=== PATIENT | male | born 1955 | race Caucasian/White ===

== ENCOUNTER 2017-10-18 10:52 | Day surgery (SDC) | payer OTHER ==
[2017-10-18] MEDS ORDERED: DIPHENHYDRAMINE 50 MG CAP PO (11:30)
[2017-10-18] MEDS ORDERED: DIAZEPAM 5 MG TAB PO (11:30)
[2017-10-18] MEDS ORDERED: FENTAnyl 50 MCG/ML VIAL (12:21)
[2017-10-18] MEDS ORDERED: IODIXANOL LOCM 100 ML BTL ×2 (12:21→13:16)
[2017-10-18] MEDS ORDERED: HEPARIN 1000 UNITS/ML 10 ML INJ (12:21)
[2017-10-18] MEDS ORDERED: LIDOCAINE 1% (MDV) 20 ML INJ (12:21)
[2017-10-18] MEDS ORDERED: VERAPAMIL 5 MG INJ (12:22)
[2017-10-18] MEDS ORDERED: NITROGLYCERIN (IC) 100 MCG/ML INJ (12:22)
[2017-10-18] MEDS ORDERED: MIDAZOLAM 1 MG/ML 2 ML INJ (12:22)
[2017-10-18] MEDS ORDERED: ADENOSINE 30 ML (13:16)
[2017-10-18] MEDS: SOD CHLORIDE 0.9% 1,000 ML IV (13:25)
[2017-10-18] MEDS ORDERED: AL HYDROX/MG HYDROX/SIMETH 30 ML CUP PO (13:30)
[2017-10-18] MEDS ORDERED: ACETAMINOPHEN 325 MG TAB PO (13:30)
[2017-10-18] MEDS ORDERED: ONDANSETRON 4 MG INJ IV (13:30)
[2017-10-18] MEDS: morphine 2 MG INJ IV (14:58)
== END 2017-10-18 15:45 | disposition short-term general hospital (02) ==
LOC: SDS 10:52
DX: I25.10 Atherosclerotic heart disease of native coronary artery without angina pectoris (principal); I10 Essential (primary) hypertension; E78.5 Hyperlipidemia, unspecified; F17.200 Nicotine dependence, unspecified, uncomplicated
CPT/HCPCS: 93005; 93458; 93571

== ENCOUNTER 2018-08-13 20:48 | Emergency (ER) | payer OTHER ==
[2018-08-14 00:30] LABS: ADD MAN DIFF? NO
[2018-08-14 00:32] LABS: BASOPHILS % 0.1 % (0.0-2.0); EOSINOPHILS % 0.1 % (0.0-7.0); HEMATOCRIT 43.1 % (42.0-52.0); HEMOGLOBIN 14.4 g/dl (14.0-18.0); LYMPHOCYTES # 1.5 10^3/ul (0.8-2.9); LYMPHOCYTES % 22.6 % (15.0-51.0); MEAN CORPUSCULAR HEMOGLOBIN 28.6 pg (29.0-33.0); MEAN CORPUSCULAR HGB CONC 33.4 g/dl (32.0-37.0); MEAN CORPUSCULAR VOLUME 85.5 fl (82.0-101.0); MEAN PLATELET VOLUME 9.6 fl (7.4-10.4); MONOCYTE # 0.5 10^3/ul (0.3-0.9); MONOCYTES % 6.7 % (0.0-11.0); NEUTROPHIL # 4.7 10^3/ul (1.6-7.5); NEUTROPHILS % 70.2 % (39.0-77.0); PLATELET COUNT 172 10^3/UL (140-415); RED BLOOD COUNT 5.04 10^6/ul (4.70-6.10); RED CELL DISTRIBUTION WIDTH 13.6 % (11.5-14.5)
[2018-08-14 00:32] LABS: WHITE BLOOD COUNT 6.7 10^3/ul (4.8-10.8)
[2018-08-14 00:49] LABS: ALANINE AMINOTRANSFERASE 14 IU/L (13-69); ALBUMIN 3.7 g/dl (3.3-4.9); ALBUMIN/GLOBULIN RATIO 1.48; ALKALINE PHOSPHATASE 83 IU/L (42-121); ANION GAP 9 (5-13); ASPARTATE AMINO TRANSFERASE 17 IU/L (15-46); BILIRUBIN,INDIRECT 0.4 mg/dl (0-1.1); BILIRUBIN,TOTAL 0.4 mg/dl (0.2-1.3); BLOOD UREA NITROGEN 8 mg/dl (7-20); CALCIUM 9.1 mg/dl (8.4-10.2); CARBON DIOXIDE 27 mmol/L (21-31); CHLORIDE 108 mmol/L (97-110); CREATININE 0.79 mg/dl (0.61-1.24); Estimated GFR > 60 mL/min (>60); GLUCOSE 92 mg/dl (70-220); POTASSIUM 3.4 mmol/L (3.5-5.1); SODIUM 144 mmol/L (135-144); TOTAL PROTEIN 6.2 g/dl (6.1-8.1)
[2018-08-14 01:00] LABS: B-TYPE NATRIURETIC PEPTIDE 90 PG/ML (0-125); TROPONIN-I < 0.012 ng/ml (0.000-0.120)
[2018-08-14] MEDS: HYDROCODONE/APAP (10/325) TAB PO (01:29)
== END 2018-08-14 02:04 | disposition left against medical advice (07) ==
LOC: E/R 20:48
DX: R07.89 Other chest pain (principal); J44.9 Chronic obstructive pulmonary disease, unspecified; I10 Essential (primary) hypertension; F17.210 Nicotine dependence, cigarettes, uncomplicated; Z79.01 Long term (current) use of anticoagulants; Z79.82 Long term (current) use of aspirin; Z98.61 Coronary angioplasty status
CPT/HCPCS: 36415; 71045; 80053; 83880; 84484; 85025; 93005; 99285-25

== ENCOUNTER 2018-08-14 02:37 | Emergency (ER) | payer SELFPAY, OTHER | END 2018-08-14 02:38 | disposition left against medical advice (07) | LOC: E/R 02:37 | DX: Z53.21 Procedure and treatment not carried out due to patient leaving prior to being seen by health care provider (principal) ==

== ENCOUNTER 2018-08-24 08:53 | Day surgery (SDC) | payer OTHER ==
[2018-08-24] MEDS ORDERED: DIAZEPAM 5 MG/ML SYG IV (09:30)
[2018-08-24] MEDS: morphine 2 MG INJ IV ×2 (09:45→14:00)
[2018-08-24 10:25] LABS: ADD MAN DIFF? NO
[2018-08-24 10:28] LABS: WHITE BLOOD COUNT 4.7 10^3/ul (4.8-10.8)
[2018-08-24 10:28] LABS: HEMATOCRIT 39.3 % (42.0-52.0); HEMOGLOBIN 13.5 g/dl (14.0-18.0); LYMPHOCYTES % 20.8 % (15.0-51.0); MEAN CORPUSCULAR HEMOGLOBIN 28.8 pg (29.0-33.0); MEAN CORPUSCULAR HGB CONC 34.4 g/dl (32.0-37.0); MEAN PLATELET VOLUME 9.3 fl (7.4-10.4); MONOCYTE # 0.4 10^3/ul (0.3-0.9); MONOCYTES % 8.3 % (0.0-11.0); NEUTROPHIL # 3.3 10^3/ul (1.6-7.5); NEUTROPHILS % 70.5 % (39.0-77.0); PLATELET COUNT 167 10^3/UL (140-415); RED BLOOD COUNT 4.68 10^6/ul (4.70-6.10); RED CELL DISTRIBUTION WIDTH 13.5 % (11.5-14.5)
[2018-08-24 10:47] LABS: PROTIME 12.3 Sec (11.9-14.9)
[2018-08-24 10:48] LABS: PARTIAL THROMBOPLASTIN TIME 27.8 Sec (23.0-35.0)
[2018-08-24 10:51] LABS: ANION GAP 9 (5-13); BLOOD UREA NITROGEN 18 mg/dl (7-20); CALCIUM 9.3 mg/dl (8.4-10.2); CARBON DIOXIDE 26 mmol/L (21-31); CHLORIDE 106 mmol/L (97-110); CHOL/HDL RATIO 3.7 RATIO; CHOLESTEROL 150 mg/dl (100-200); Estimated GFR > 60 mL/min (>60); GLUCOSE 104 mg/dl (70-220); HDL CHOLESTEROL 40 mg/dl (30-78); LDL CHOLESTEROL,CALCULATED 87 mg/dl; POTASSIUM 4.1 mmol/L (3.5-5.1); SODIUM 141 mmol/L (135-144); TRIGLYCERIDES 113 mg/dl (0-149)
[2018-08-24] MEDS: DIAZEPAM 5 MG TAB PO (10:54)
[2018-08-24] MEDS: DIPHENHYDRAMINE 50 MG CAP PO (10:54)
[2018-08-24] MEDS ORDERED: HEPARIN 1000 UNITS/ML 10 ML INJ (11:37)
[2018-08-24] MEDS ORDERED: IODIXANOL LOCM 100 ML BTL (11:37)
[2018-08-24] MEDS ORDERED: FENTAnyl 50 MCG/ML VIAL (11:38)
[2018-08-24] MEDS ORDERED: MIDAZOLAM 1 MG/ML 2 ML INJ (11:38)
[2018-08-24] MEDS ORDERED: VERAPAMIL 5 MG INJ (11:38)
[2018-08-24] MEDS ORDERED: NITROGLYCERIN (IC) 100 MCG/ML INJ (11:38)
[2018-08-24] MEDS ORDERED: LIDOCAINE 1% (MDV) 20 ML INJ (11:38)
[2018-08-24] MEDS ORDERED: BIVALIRUDIN 250MG /NS 50 ML 50 ML IVPB (12:12)
[2018-08-24] MEDS ORDERED: SOD CHLORIDE 0.9% 1,000 ML IV (13:14)
[2018-08-24] MEDS ORDERED: AL HYDROX/MG HYDROX/SIMETH 30 ML CUP PO (13:30)
[2018-08-24] MEDS ORDERED: ONDANSETRON 4 MG INJ IV (13:30)
[2018-08-24] MEDS ORDERED: ACETAMINOPHEN 325 MG TAB PO (13:30)
[2018-08-24] MEDS: LORAZEPAM 1 MG TAB PO (15:54)
== END 2018-08-24 17:32 | disposition home or self-care (01) ==
LOC: CCL 08:53 → SDS 08:53 → CCL 17:32
DX: I25.10 Atherosclerotic heart disease of native coronary artery without angina pectoris (principal); I10 Essential (primary) hypertension; E78.5 Hyperlipidemia, unspecified
CPT/HCPCS: 80048; 80061; 85025; 85610; 85730; 93005; 93458; 93571

== ENCOUNTER 2018-11-13 14:26 | Observation (INO) | payer OTHER ==
[2018-11-13 14:53] LABS: ADD MAN DIFF? NO
[2018-11-13 14:55] LABS: HEMATOCRIT 42.6 % (42.0-52.0); HEMOGLOBIN 14.8 g/dl (14.0-18.0); LYMPHOCYTES # 0.8 10^3/ul (0.8-2.9); LYMPHOCYTES % 13.6 % (15.0-51.0); MEAN CORPUSCULAR HEMOGLOBIN 28.8 pg (29.0-33.0); MEAN CORPUSCULAR HGB CONC 34.7 g/dl (32.0-37.0); MEAN PLATELET VOLUME 9.2 fl (7.4-10.4); MONOCYTE # 0.3 10^3/ul (0.3-0.9); MONOCYTES % 5.6 % (0.0-11.0); NEUTROPHIL # 4.5 10^3/ul (1.6-7.5); NEUTROPHILS % 80.4 % (39.0-77.0); PLATELET COUNT 149 10^3/UL (140-415); RED BLOOD COUNT 5.13 10^6/ul (4.70-6.10); RED CELL DISTRIBUTION WIDTH 13.4 % (11.5-14.5)
[2018-11-13 14:55] LABS: WHITE BLOOD COUNT 5.6 10^3/ul (4.8-10.8)
[2018-11-13 15:20] LABS: ALANINE AMINOTRANSFERASE 21 IU/L (13-69); ALBUMIN 4.4 g/dl (3.3-4.9); ALBUMIN/GLOBULIN RATIO 1.29; ALKALINE PHOSPHATASE 112 IU/L (42-121); ANION GAP 11 (5-13); ASPARTATE AMINO TRANSFERASE 19 IU/L (15-46); BILIRUBIN,INDIRECT 0.8 mg/dl (0-1.1); BILIRUBIN,TOTAL 0.8 mg/dl (0.2-1.3); BLOOD UREA NITROGEN 10 mg/dl (7-20); CALCIUM 9.9 mg/dl (8.4-10.2); CARBON DIOXIDE 21 mmol/L (21-31); CHLORIDE 111 mmol/L (97-110); CREATININE 0.76 mg/dl (0.61-1.24); Estimated GFR > 60 mL/min (>60); GLUCOSE 120 mg/dl (70-220); SODIUM 143 mmol/L (135-144); TOTAL PROTEIN 7.8 g/dl (6.1-8.1)
[2018-11-13 15:33] LABS: TROPONIN-I < 0.012 ng/ml (0.000-0.120)
[2018-11-13] MEDS: ONDANSETRON 4 MG INJ IV (17:57)
[2018-11-13] MEDS: morphine 4 MG/ML VIAL IV (17:58)
[2018-11-13] MEDS: ASPIRIN 81 MG TAB PO (17:58)
[2018-11-13] MEDS: NITROGLYCERIN 0.1 MG/HR PATCH TRANSDERM (19:57)
[2018-11-13] MEDS: PANTOPRAZOLE (EC) 40 MG TAB PO (19:57)
[2018-11-13] MEDS: QUETIAPINE 100 MG TAB PO (19:58)
[2018-11-13] MEDS: LOSARTAN 50 MG TAB PO (19:58)
[2018-11-13] MEDS ORDERED: NITROGLYCERIN (SL) 0.4 MG TAB SL (20:00)
[2018-11-13] MEDS ORDERED: AL HYDROX/MG HYDROX/SIMETH 30 ML CUP PO (20:00)
[2018-11-13] MEDS ORDERED: ACETAMINOPHEN 325 MG TAB PO ×2 (20:00)
[2018-11-13] MEDS ORDERED: morphine LIQ (10 MG/5 ML) CUP JT (20:00)
[2018-11-13] MEDS ORDERED: ONDANSETRON 4 MG INJ IV ×2 (20:00)
[2018-11-13] MEDS: LORAZEPAM 1 MG TAB PO (20:03)
[2018-11-13] MEDS: ATORVASTATIN 20 MG TAB PO (20:36)
[2018-11-13] MEDS: morphine 2 MG INJ IV (21:44)
[2018-11-14] MEDS: ZOLPIDEM 5 MG TAB PO (00:43)
[2018-11-14 01:23] LABS: TROPONIN-I < 0.012 ng/ml (0.000-0.120)
[2018-11-14] MEDS: morphine 2 MG INJ IV ×3 (01:59→10:45)
[2018-11-14] MEDS: LORAZEPAM 1 MG TAB PO ×2 (03:48→11:55)
[2018-11-14] MEDS: PANTOPRAZOLE (EC) 40 MG TAB PO (06:37)
[2018-11-14 07:28] LABS: TROPONIN-I < 0.012 ng/ml (0.000-0.120)
[2018-11-14] MEDS: CLOPIDOGREL 75 MG TAB PO (09:00)
[2018-11-14] MEDS: LOSARTAN 50 MG TAB PO (09:00)
[2018-11-14] MEDS: DOCUSATE SODIUM 100 MG CAP PO (09:00)
[2018-11-14] MEDS: ASPIRIN 81 MG TAB PO (09:00)
[2018-11-14] MEDS: NITROGLYCERIN 0.1 MG/HR PATCH TRANSDERM (10:44)
[2018-11-14] MEDS ORDERED: METOPROLOL (XL) 25 MG TAB PO (13:00)
[2018-11-14] MEDS ORDERED: ISOSORBIDE MONONITRATE(SR)30 MG TAB PO (13:00)
== END 2018-11-14 13:00 | disposition home or self-care (01) ==
LOC: E/R 14:26 → TEL 19:35
DX: R07.9 Chest pain, unspecified (principal); I10 Essential (primary) hypertension; E78.5 Hyperlipidemia, unspecified; I25.10 Atherosclerotic heart disease of native coronary artery without angina pectoris; Z95.5 Presence of coronary angioplasty implant and graft; G89.4 Chronic pain syndrome; J44.9 Chronic obstructive pulmonary disease, unspecified; F41.9 Anxiety disorder, unspecified; F17.200 Nicotine dependence, unspecified, uncomplicated; Z79.82 Long term (current) use of aspirin
CPT/HCPCS: 71045; 80053; 84484; 85025; 93005; 96374; 96375; 99285-25; G0378